=== PATIENT | female | born 1990 | race Caucasian/White ===

== ENCOUNTER 2018-07-11 17:52 | Observation (INO) | payer BC ==
[~2018-07-11] VITALS: Ht 162.6 cm; Wt 66.0 kg
[2018-07-11] MEDS ORDERED: SODIUM CHLORIDE 0.9% 1000ML 1,000 ML IV STA (18:01)
[2018-07-11 18:20] LABS: BASO % 0.2 %; BASO ABS # 0.02 K/uL (0-0.2); EOS % 0.3 %; EOS ABS # 0.03 K/uL (0-0.5); HEMATOCRIT 39.8 % (37-47); HEMOGLOBIN 13.7 g/dL (12.0-16.0); IG# 0.01 K/uL (0.00-0.02); LYMPH % 18.2 %; LYMPH ABS # 1.73 K/uL (1.2-3.4); MEAN CELL VOLUME 90.5 fL (80-100); MEAN CORPUSCULAR HEMOGLOBIN 31.1 pg (25-34); MEAN CORPUSCULAR HGB CONC 34.4 g/dl (32-36); MEAN PLATELET VOLUME 10.4 fL (7.4-10.4); MONO % 3.7 %; MONO ABS # 0.35 K/uL (0.11-0.59); NEUT % 77.5 %; NEUT ABS # 7.35 K/uL (1.4-6.5); PLATELET COUNT 235 K/uL (130-400); RED CELL DISTRIBUTION WIDTH CV 13.1 % (11.5-14.5); RED CELL DISTRIBUTION WIDTH SD 42.8 fL (36.4-46.3); WHITE BLOOD COUNT 9.49 K/uL (4.8-10.8)
--- NOTE | 2018-07-11 18:24 | DIAGNOSTIC IMAGING REPORT ---
CHEST ONE VIEW PORTABLE CLINICAL HISTORY: Chest pain. COMPARISON STUDY: No previous studies for comparison. FINDINGS: There is no pneumothorax or pleural effusion. Lung volumes are normal. There is no consolidation. Cardiac size is normal. Mediastinal contours are normal. 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 IMPRESSION: 1. No acute cardiopulmonary findings. 2. Nonvisualization/deformity of several left upper ribs which is likely congenital or postsurgical. Electronically signed by: Vincent Collazo M.D. 07/11/2018 6:23 PM Dictated Date/Time: 07/11/2018 6:20 PM
[2018-07-11 18:41] LABS: BLOOD UREA NITROGEN 16 mg/dl (7-18); CALCIUM 9.1 mg/dl (8.5-10.1); CARBON DIOXIDE 22 mmol/L (21-32); CKMB < 1.0 ng/ml (0.5-3.6); CREATININE 0.99 mg/dl (0.60-1.20); GLUCOSE 126 mg/dl (70-99); POTASSIUM 3.7 mmol/L (3.5-5.1); SODIUM 139 mmol/L (136-145)
--- NOTE | 2018-07-11 18:50 | EMERGENCY ROOM VISIT NOTE ---
History Report prepared by Sherrell: Tonya Carranza Under the Supervision of: Dr. Stepan Vo D.O. First contact with patient: 17:45 Stated Complaint: CHEST PAIN History of Present Illness The patient is a 28 year old female who presents to the Emergency Room with complaints of sudden chest pain starting 1.5 hours ago. The patient states that 2 days ago she was driving home with her daughter in the evening and started feeling short of breath. She states that she was unsure what was going on so she kept going home. 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 She reports that at the time she didn't want a big work up so she just had a CBC and D-Dimer done. She states that they came back normal. She notes that she was concerned for a PE since she takes fertility drugs. The patient states that after a few hours the pain subsided. She reports that when she got home she took a Benadryl and Tylenol before going to bed. She states that she woke up yesterday with a rash on her back that she believes looks like shingles. She states that the rest of yesterday was fine and she woke up today feeling fine. The patient reports that [place] when she started to feel her heart rate elevate. She states that her chest started to feel tight and she stated feeling short of breath again. She states that she decided to go home, but it kept getting worse. The patient states that the chest pain is getting better, but it is still difficult to breathe. She notes that she thought it was just anxiety, but she has no reason to be anxious and no history of anxiety. She states that when it is at its worst she feels like she cannot breathe, cannot swallow, and feels like she is going to . The patient complains of not being able to think clearly. The patient denies cough, runny nose, abdominal pain, urinary symptoms, nausea, vomiting, arm pain , jaw pain, exertional chest pain, and her rash burning. She notes that her LNMP was 3 weeks ago and she is due for a test next . Patient denies diabetes, hypertension, hyperlipidemia, CAD, history of sudden at a young age, and smoking. Patient denies swelling of calves, recent trips, history of immobilization or recent surgery, prior history of DVT, hemoptysis, history of malignancy, history of smoking, or control/estrogen use. Source of History: patient Onset: 1.5 hours ago Position: chest Quality: other (tightness) Timing: other (sudden) Associated Symptoms: + SOB, + rash, No cough, No nausea, No vomiting, No abdominal pain, No urinary symptoms Note: The patient complains of heart rate elevating, difficulty breathing, and not being able to think clearly. The patient denies a runny nose, hemoptysis, arm pain, jaw pain, exertional chest pain, leg swelling, and the rash burning. Review of Systems See HPI for pertinent positives & negatives. A total of 10 systems reviewed and were otherwise negative. Past Medical & Surgical Medical Problems: (1) Chest pain (2) No Known Active Medical Problems No known medical problems. Family History Patient reports no known family medical history. Social History Marital Status: Housing Status: lives with family Occupation Status: employed Current/Historical Medications Scheduled Cholecalciferol (Vitamin D), 5,000 UNITS PO DAILY Estradiol (Estrace), 2 MG PO BID Multivit/Min/Iron/Fol Ac/Pren ( Vitamin), 1 TAB PO DAILY Progesterone Micronized (Prometrium), 200 MG PO BID Scheduled PRN Acetaminophen (Tylenol), 1,000 MG PO Q6 PRN for Pain or Fever Allergies Coded Allergies: Cephalosporins (Verified Allergy, Mild, RASH, 07/11/18) Penicillins (Verified Allergy, Mild, rash, 07/11/18) Physical Exam Vital Signs Date Time Temp Pulse Resp B/P (MAP) Pulse Ox O2 Delivery O2 Flow Rate FiO2 07/11/18 21:36 99 14 07/11/18 21:31 114/80 07/11/18 21:06 90 16 07/11/18 21:05 92 16 124/91 07/11/18 21:01 124/81 07/11/18 21:00 130/77 07/11/18 20:06 116 16 99 07/11/18 20:01 151/95 07/11/18 20:00 114 20 100 Room Air 07/11/18 19:31 128/82 07/11/18 19:30 111 26 100 Room Air 07/11/18 19:18 138/86 07/11/18 19:01 140/89 07/11/18 19:00 107 18 140/89 100 Room Air 07/11/18 19:00 109 23 100 07/11/18 18:32 91 13 123/86 99 Room Air 07/11/18 18:03 88 07/11/18 18:00 36.8 93 18 137/87 97 Room Air 07/11/18 18:00 98 Room Air Physical Exam GENERAL: Sitting up in bed, alert, well appearing, well nourished, no distress, non-toxic EYE EXAM: normal conjunctiva. OROPHARYNX: no exudate, no erythema, lips, buccal mucosa, and tongue normal and mucous membranes are moist NECK: supple, no nuchal rigidity, no adenopathy, non-tender LUNGS: Clear to auscultation. Normal chest wall mechanics HEART: no murmurs, S1 normal and S2 normal ABDOMEN: abdomen soft, non-tender, normo-active bowel sounds, no masses, no rebound or guarding. BACK: Back is symmetrical on inspection and there is no deformity, no midline tenderness, no CVA tenderness. SKIN: Right upper mid thoracic has 2 slightly raised erythematous lesions covered by a band aid. UPPER EXTREMITIES: upper extremities are grossly normal. Radial pulses equal bilaterally. LOWER EXTREMITIES: No pitting edema. Calves are equal bilaterally. NEURO EXAM: Normal sensorium, cranial nerves II-XII grossly intact, normal speech, no gross weakness of arms, no gross weakness of legs. Medical Decision & Procedures ER Provider Diagnostic Interpretation: Radiology results as stated below per my review and the radiologist's interpretation: CHEST ONE VIEW PORTABLE CLINICAL HISTORY: Chest pain. COMPARISON STUDY: No previous studies for comparison. FINDINGS: There is no pneumothorax or pleural effusion. Lung volumes are normal. There is no consolidation. Cardiac size is normal. Mediastinal contours are normal. 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 IMPRESSION: 1. No acute cardiopulmonary findings. 2. Nonvisualization/deformity of several left upper ribs which is likely congenital or postsurgical. Electronically signed by: Vincent Collazo M.D. 07/11/2018 6:23 PM Dictated Date/Time: 07/11/2018 6:[address] ANGIOGRAPHY OF THE CHEST, PULMONARY EMBOLUS PROTOCOL CLINICAL HISTORY: Chest pain and shortness of breath. COMPARISON STUDY: Chest radiograph performed earlier today. TECHNIQUE: The patient's abdomen and pelvis were double shielded as patient is undergoing fertility treatments. Following IV administration of 71 mL of Optiray-320, helical axial images of the chest were obtained utilizing the pulmonary embolus protocol. Maximal intensity projections and sagittal and coronal reformats were viewed on an independent 3D workstation. IV contrast was administered without complication. A dose lowering technique was utilized adhering to the principles of ALARA. CT DOSE: 183.76 mGy.cm FINDINGS: No pulmonary emboli are identified although exam is mildly compromised by respiratory motion artifact. There is no evidence for thoracic aortic dissection. The size of the heart is normal. There is no pericardial effusion. No enlarged axillary, mediastinal or hilar lymph nodes are present. The central airways are patent. No consolidation is present. No pneumothorax or pleural effusion is noted. 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 Visualized portions of the upper abdomen is unremarkable. IMPRESSION: 1. No pulmonary emboli identified although segmental and subsegmental pulmonary arteries suboptimally assessed due to respiratory motion artifact. 2. No acute intrathoracic findings. Electronically signed by: Vincent Collazo M.D. 07/11/2018 9:06 PM Dictated Date/Time: 07/11/2018 9:00 PM Laboratory Results 07/11/18 17:55 Red Blood Count 4.40, Mean Corpuscular Volume 90.5, Mean Corpuscular Hemoglobin 31.1, Mean Corpuscular Hemoglobin Concent 34.4, Mean Platelet Volume 10.4, Neutrophils (%) (Auto) 77.5, Lymphocytes (%) (Auto) 18.2, Monocytes (%) (Auto) 3.7, Eosinophils (%) (Auto) 0.3, Basophils (%) (Auto) 0.2, Neutrophils # (Auto) 7.35, Lymphocytes # (Auto) 1.73, Monocytes # (Auto) 0.35, Eosinophils # (Auto) 0.03, Basophils # (Auto) 0.02 07/11/18 17:55 Test 07/11/18 17:55 07/11/18 20:35 White Blood Count 9.49 K/uL (4.8-10.8) Red Blood Count 4.40 M/uL (4.2-5.4) Hemoglobin 13.7 g/dL (12.0-16.0) Hematocrit 39.8 % (37-47) Mean Corpuscular Volume 90.5 fL (80-100) Mean Corpuscular Hemoglobin 31.1 pg (25-34) Mean Corpuscular Hemoglobin Concent 34.4 g/dl (32-36) Platelet Count 235 K/uL (130-400) Mean Platelet Volume 10.4 fL (7.4-10.4) Neutrophils (%) (Auto) 77.5 % Lymphocytes (%) (Auto) 18.2 % Monocytes (%) (Auto) 3.7 % Eosinophils (%) (Auto) 0.3 % Basophils (%) (Auto) 0.2 % Neutrophils # (Auto) 7.35 K/uL (1.4-6.5) Lymphocytes # (Auto) 1.73 K/uL (1.2-3.4) Monocytes # (Auto) 0.35 K/uL (0.11-0.59) Eosinophils # (Auto) 0.03 K/uL (0-0.5) Basophils # (Auto) 0.02 K/uL (0-0.2) RDW Standard Deviation 42.8 fL (36.4-46.3) RDW Coefficient of Variation 13.1 % (11.5-14.5) Immature Granulocyte % (Auto) 0.1 % Immature Granulocyte # (Auto) 0.01 K/uL (0.00-0.02) D-Dimer 330 ug/L FEU (0-500) Anion Gap 9.0 mmol/L (3-11) Est Creatinine Clear Calc Drug Dose 78.1 ml/min Estimated GFR () 88.6 Estimated GFR (Non- 76.5 BUN/Creatinine Ratio 16.1 (10-20) Calcium Level 9.1 mg/dl (8.5-10.1) Total Creatine Kinase 66 U/L (26-192) Creatine Kinase MB < 1.0 ng/ml (0.5-3.6) Creatine Kinase MB Ratio (0-3.0) Magnesium Level 1.9 mg/dl (1.8-2.4) Total Bilirubin 0.3 mg/dl (0.2-1) Direct Bilirubin 0.1 mg/dl (0-0.2) Aspartate Amino Transf (AST/SGOT) 11 U/L (15-37) Alanine Aminotransferase (ALT/SGPT) 17 U/L (12-78) Alkaline Phosphatase 52 U/L (45-117) Troponin I < 0.015 ng/ml (0-0.045) Total Protein 7.2 gm/dl (6.4-8.2) Albumin 3.9 gm/dl (3.4-5.0) Lipase 146 U/L (73-393) Thyroid Stimulating Hormone (TSH) 2.560 uIu/ml (0.300-4.500) Laboratory results per my review. Medications Administered Medications (Trade) Dose Ordered Sig/Priscila Route Start Time Stop Time Status Last Admin Dose Admin Sodium Chloride 1,000 ml @ 999 mls/hr Q1H1M STAT IV 07/11/18 18:01 07/11/18 19:01 DC 07/11/18 18:30 999 MLS/HR Miscellaneous Information (Patient'S Allergy Info Needs Entered) 1 ea NOW STAT N/A 07/11/18 20:52 07/11/18 20:53 DC 07/11/18 21:02 1 EA ECG Per My Interpretation Indication: chest pain Rate (beats per minute): 90 Rhythm: sinus rhythm Findings: T-wave inversion (Septal), other (normal axis, no PVCs) ED Course ED COURSE: Vital signs were reviewed and showed that they were normal. The patients medical record was reviewed The above diagnostic studies were performed and reviewed. ED treatments and interventions as stated above. 1750: The patient was evaluated in room B6. A complete history and physical examination was performed. 1800: Ordered NSS 1000 ml @ 999 mls/hr IV. 1848: I reevaluated the patient and she still has some chest pain. 1857: I tried at this time to obtain records from the [facility], but they are closed. 1911: I reviewed the patient's case with Dr. Yi- Cardiology. He agrees that it is unlikely cardiac, but agrees that observation is reasonable with current findings. 1917: I reevaluated the patient and she feels like her heart is racing. She feels like she is having a reoccurrence of her chest pain. Her heart rate is in the 112s. I recommended observation and the patient notes that she will thinks about it. 1999: I reevaluated the patient and she discussed her case with her attending. She would like a CT-PE and would prefer to go home at this time, but will consider it. 2125: Upon reevaluation, the patient is resting comfortably. I discussed my findings with the patient and she understands and agrees with the treatment plan. Based on the patients age, coexisting illnesses, exam and lab findings the decision to treat as an inpatient was made. The patient remained stable while under my care. The patient will be evaluated for further management. 2133: I reviewed the patient's case with Dr. Jak Celestin. He will evaluate the patient for further management. Medical Decision Differential diagnoses includes but is not limited to acute coronary syndrome, myocardial infarction, pericarditis, pulmonary embolus, aortic dissection, pneumonia, pneumothorax, musculoskeletal, shingles, esophageal. Patient is a 28-year-old female who presents the ER with intermittent precordial chest pain and shortness of breath which is been present for the past 3 days off and on. She was seen in outside hospital had a CBC and d-dimer which was negative along with an unremarkable EKG. Patient notes her symptoms get worse tonight. Labs including CBC, BMP and troponins 2 were negative along with a TSH and negative d-dimer. 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 She did request a CT PE which was performed and was negative after multiple discussions. I did discuss case with cardiology. With the flipped T waves although we favor this very unlikely to be cardiac with her low risk history patient was agreeable to staying for an echo in the morning. Patient has no other complaints at this time. She notes that her pain has completely resolved. Medication Reconcilliation Current Medication List: was personally reviewed by me Blood Pressure Screening Patient's blood pressure: Normal blood pressure Blood pressure disposition: Did not require urgent referral Consults Time Called: 1907 Consulting Physician: Dr. Yi- Cardiology Returned Call: 1911 I reviewed the patient's case with Dr. Rosenthal Cardiology. He agrees that it is unlikely cardiac, but agrees that observation is reasonable with current findings Additional Consults: Time Called: 2129 Consulted Physician: Dr. Jak Celestin Returned Call: 2133 Additional Comments: I reviewed the patient's case with Dr. Jak Celestin. He will evaluate the patient for further management. Impression Primary Impression: Precordial chest pain Additional Impression: SOB (shortness of breath) Scribe Attestation The scribe's documentation has been prepared under my direction and personally reviewed by me in its entirety. I confirm that the note above accurately reflects all work, treatment, procedures, and medical decision making performed by me. Departure Information Dispostion Being Evaluated By Hospitalist Problem Qualifiers
[2018-07-11] MEDS ORDERED: OPTIRAY 320 IV PRN (20:30)
[2018-07-11] MEDS ORDERED: PATIENT'S ALLERGY INFO NEEDS ENTERED STA (20:52)
--- NOTE | 2018-07-11 21:07 | DIAGNOSTIC IMAGING REPORT ---
CT ANGIOGRAPHY OF THE CHEST, PULMONARY EMBOLUS PROTOCOL CLINICAL HISTORY: Chest pain and shortness of breath. COMPARISON STUDY: Chest radiograph performed earlier today. TECHNIQUE: The patient's abdomen and pelvis were double shielded as patient is undergoing fertility treatments. Following IV administration of 71 mL of Optiray-320, helical axial images of the chest were obtained utilizing the pulmonary embolus protocol. Maximal intensity projections and sagittal and coronal reformats were viewed on an independent 3D workstation. IV contrast was administered without complication. A dose lowering technique was utilized adhering to the principles of ALARA. CT DOSE: 183.76 mGy.cm FINDINGS: No pulmonary emboli are identified although exam is mildly compromised by respiratory motion artifact. There is no evidence for thoracic aortic dissection. The size of the heart is normal. There is no pericardial effusion. No enlarged axillary, mediastinal or hilar lymph nodes are present. The central airways are patent. No consolidation is present. No pneumothorax or pleural effusion is noted. 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 Visualized portions of the upper abdomen is unremarkable. IMPRESSION: 1. No pulmonary emboli identified although segmental and subsegmental pulmonary arteries suboptimally assessed due to respiratory motion artifact. 2. No acute intrathoracic findings. Electronically signed by: Vincent Collazo M.D. 07/11/2018 9:06 PM Dictated Date/Time: 07/11/2018 9:00 PM
[2018-07-11] MEDS ORDERED: IV FLUIDS COMPLETED PRN (22:00)
[2018-07-11] MEDS ORDERED: CHOL1TAB42 PO (22:09)
[2018-07-11] MEDS ORDERED: PROG200C8 PO (22:09)
[2018-07-11] MEDS ORDERED: ESTR2 PO (22:09)
[2018-07-11] MEDS ORDERED: ACET-1256 PO (22:09)
[2018-07-11] MEDS ORDERED: PRENTAB26 PO (22:09)
[2018-07-11 22:14] LABS: ALBUMIN 3.9 gm/dl (3.4-5.0); TOTAL PROTEIN 7.2 gm/dl (6.4-8.2)
[2018-07-11] MEDS ORDERED: NITROGLYCERIN 0.4 MG SL PER TAB CHARGE SL STA (22:18)
[2018-07-11] MEDS ORDERED: NITROGLYCERIN 0.4 MG SL PER TAB CHARGE ONE (22:22)
[2018-07-11] MEDS ORDERED: LACTATED RINGER'S 1000ML 1,000 ML IV SCH ×2 (22:30→23:45)
[2018-07-11] MEDS ORDERED: TRAMADOL HCL 50 MG TAB PO PRN (22:45)
[2018-07-11] MEDS ORDERED: MoRPHine SULFATE 2 MG/ML CARP IV PRN ×2 (22:45→23:00)
[2018-07-11] MEDS ORDERED: PROCHLORPERAZINE INJ 5 MG in SYRINGE 4 ML IV PRN (22:45)
[2018-07-11] MEDS ORDERED: LORAZEPAM 2 MG/ML 1 ML VIAL IV PRN (22:45)
[2018-07-11] MEDS ORDERED: KETOROLAC TROMETHAMINE 30 MG/ML VIAL IV ONE (22:49)
[2018-07-11] MEDS ORDERED: IBUPROFEN 200 MG TAB PO PRN (23:00)
[2018-07-11] MEDS ORDERED: KETOROLAC TROMETHAMINE 15 MG/ML VIAL IV. PRN (23:00)
[2018-07-11 23:30] VITALS: BP 117/74; PULSE 80; TEMP 37.4; O2SAT 98; Ht 162.6 cm; Wt 66.0 kg
[2018-07-11] MEDS: ACETAMINOPHEN 325 MG TAB PO PRN (23:56)
[2018-07-12] MEDS ORDERED: LORAZEPAM INJ 0.25 MG in SYRINGE 0.125 ML IV PRN (00:15)
--- NOTE | 2018-07-12 02:43 | HISTORY & PHYSICAL EXAMINATION ---
DATE OF ADMISSION: 07/11/2018 PRIMARY CARE PHYSICIAN: Dr. Plunkett. CHIEF COMPLAINT: Chest pain. HISTORY OF PRESENT ILLNESS: History obtained from patient, mother, records. Medical history is significant for polycystic ovary syndrome. Patient recently started on oral contraceptive pills for fertility for PCOS last week. Two days ago, she was driving home when she started having achy substernal discomfort, feeling short of breath. No trauma/no unusual exertion, no cough symptoms, nonpleuritic, not like reflux. 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 At home, persistent discomfort. She woke up yesterday morning with a rash on her right posterior shoulder, somewhat painful. Patient brought to the ER by mother. No relief with nitroglycerin. MEDICAL HISTORY: As above. SURGERIES: Gynecologic procedures. HOME MEDICATIONS: Include hormonal medication. ALLERGIES: CEPHALOSPORIN, PENICILLIN. FAMILY HISTORY: There is a family history of diabetes, hyperlipidemia, kidney cancer. PERSONAL AND SOCIAL HISTORY: Nonsmoker, no chronic intake of alcoholic beverage. 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 REVIEW OF SYSTEMS: As per HPI, all 10 systems reviewed, all other ROS negative. PHYSICAL EXAMINATION: VITAL SIGNS: Blood pressure was noted to be 151/95 later 137/87, pulse rate 93 , 107, later 92, RR 16, temperature 36.8, sats 98 on room air. GENERAL: Noted to be slightly anxious, in no respiratory distress. SKIN: tender plaque-like lesions on the right shoulder blade. No scaling HEENT: [place] palpebral conjunctivae. No ptosis. Dry mucosa. NECK: Supple, nontender. CHEST: Clear to auscultation, no tenderness. HEART: Regular rate and rhythm, no murmur. ABDOMEN: Soft, nontender. EXTREMITIES: No edema, no tenderness, no gross deformities. NEUROLOGIC: Coherent. No gross focality. LABORATORY DATA: D-dimer was normal. Hemoglobin was noted to be 13.7, hematocrit 39.8, white blood cells 9.49, platelets 235. Sodium 139, potassium 4, chloride 100, CO2 of 22, glucose was noted to be 126. CTA, no acute pathology. EKG as per my interpretation, rate 90, NSR, incomplete right bundle branch block. Nonspecific T-wave abnormality ASSESSMENT: 1. Atypical chest pain multifactorial : Anxiety from possible adverse reaction to recent hormonal therapy initiated for fertility treatment for PCOS HSV reactivation 2. Hyperglycemia ro DM PLAN: Observation PCU Analgesia, anxiolytic as needed Valtrex course Patient agreeable to holding OCP for now. 2D echo RE cp Check hemoglobin A1c. Home in AM if workup unremarkable and patient comfortable. Deep venous thrombosis prophylaxis. SCDs Full code. MTDD
[2018-07-12 04:50] VITALS: BP 113/67; PULSE 68; TEMP 36.9; O2SAT 100
[2018-07-12 08:59] LABS: HEMOGLOBIN A1C 5.1 % (4.5-5.6)
[2018-07-12] MEDS ORDERED: PRENATAL VITAMIN TAB PO SCH (09:00)
[2018-07-12 09:01] VITALS: BP 104/67; PULSE 90; TEMP 37.1; O2SAT 97
[2018-07-12] MEDS: ACETAMINOPHEN 325 MG TAB PO PRN (10:45)
[2018-07-12 11:21] VITALS: BP 111/69; PULSE 80; TEMP 36.9; O2SAT 97
--- NOTE | 2018-07-12 11:36 | ECHOCARDIOGRAM REPORT ---
*NOTICE TO RECEIVING LIBERTARIAN AGENCY This information is strictly Confidential and protected under [place] law. [place] law prohibits you from making any further disclosure of this information unless further disclosure is expressly permitted by the written consent of the person to whom it pertains or is authorized by law. A general authorization for the release of medical or other information is not sufficient for this purpose. Hospital accepts no responsibility if the information is made available to any other person, INCLUDING THE PATIENT. Interpretation Summary * Name: AIDEE YO Study Date: 07/12/2018 07:07 AM BP: 113/67 mmHg * Patient Location: [facility]\S\N279\S\1 HR: 68 * : 1990 (M/d/yyyy) Gender: Female Height: 64 in * Age: 28 yrs Ethnicity: CA Weight: 147 lb * Ordering Physician: Sarthak Islas * Referring Physician: Self, Referred * Performed By: Cedric Gambino RCS * * Reason For Study: CHEST PAIN * BSA: 1.7 m2 * -- Conclusions -- * Normal LV chamber size and wall thickness. * Normal LV systolic function, EF 60-65%. * No segmental left ventricular wall motion abnormalities are noted. * Prominant septal wall papillary muscle, likely normal variant. Could consider outpatient cardiac MRI to further evaluate. * Normal diastolic function. * No significant valvular pathology. Procedure Details * A complete two-dimensional transthoracic echocardiogram was performed (2D, M-mode, Doppler and color flow Doppler). Left Ventricle * The left ventricle is normal in size. * Prominant septal wall papillary muscle, likely normal variant. Could consider outpatient cardiac MRI to further evaluate. * There is normal left ventricular wall thickness. * Left ventricular systolic function is normal. * No segmental left ventricular wall motion abnormalities are noted. * Ejection Fraction = 60-65%. * The left ventricular wall motion is normal. Right Ventricle * The right ventricular cavity size is normal (basal dimension <4.2 cm in right ventricular apical 4-chamber view). * The right ventricular systolic function is normal as assessed by tricuspid annular plane systolic excursion (TAPSE) (normal >1.5 cm). Atria * The left atrial size is normal. * Right atrial size is normal. * No ASD detected; PFO is not assessed. Mitral Valve * The mitral valve is normal in structure and function. Tricuspid Valve * The tricuspid valve is normal in structure and function. Aortic Valve * The aortic valve is not well visualized. * No hemodynamically significant valvular aortic stenosis. * There is no significant aortic regurgitation. Pulmonic Valve * The pulmonary valve is not well seen, but the Doppler examination is normal without significant regurgitation or stenosis. Great Vessels * The aortic root and proximal ascending aorta are normal sized. Pericardium/Pleural * There is no pericardial effusion. Left Ventricular Diastolic Function * Pulse wave TDI of the anterior and posterior mitral annulas demonstrates normal LV relaxation MMode 2D Measurements and Calculations IVSd 0.94 cm IVSs 1.2 cm LVIDd 4.3 cm LVIDs 2.8 cm LVPWd 0.87 cm LVPWs 1.2 cm IVS/LVPW 1.1 FS 33.7 % EDV(Teich) 82.6 ml ESV(Teich) 30.7 ml EF(Teich) 62.8 % EDV(cubed) 78.9 ml ESV(cubed) 23.0 ml EF(cubed) 70.8 % % IVS thick 29.0 % % LVPW thick 36.1 % LV mass(C)d 123.6 grams LV mass(C)dI 72.0 grams/m\S\2 LV mass(C)s 101.1 grams LV mass(C)sI 58.9 grams/m\S\2 SV(Teich) 51.9 ml SI(Teich) 30.2 ml/m\S\2 SV(cubed) 55.9 ml SI(cubed) 32.6 ml/m\S\2 Ao root diam 3.1 cm Ao root area 7.6 cm\S\2 ACS 1.5 cm LA dimension 3.3 cm asc Aorta Diam 2.4 cm LA/Ao 1.1 EDV(MOD-sp4) 93.0 ml ESV(MOD-sp4) 29.0 ml EF(MOD-sp4) 68.8 % EDV(MOD-sp2) 114.0 ml ESV(MOD-sp2) 40.0 ml EF(MOD-sp2) 64.9 % SV(MOD-sp4) 64.0 ml SI(MOD-sp4) 37.3 ml/m\S\2 SV(MOD-sp2) 74.0 ml SI(MOD-sp2) 43.1 ml/m\S\2 Doppler Measurements and Calculations MV E max ricky 78.0 cm/sec MV A max ricky 49.9 cm/sec MV E/A 1.6 MV P1/2t max ricky 106.1 cm/sec MV P1/2t 83.4 msec MVA(P1/2t) 2.6 cm\S\2 MV dec slope 372.7 cm/sec\S\2 MV dec time 0.22 sec Ao V2 max 119.1 cm/sec Ao max PG 5.7 mmHg Ao max PG (full) 2.0 mmHg LV V1 max PG 3.6 mmHg LV V1 max 95.4 cm/sec PA V2 max 79.8 cm/sec PA max PG 2.6 mmHg PI max ricky 152.7 cm/sec PI max PG 9.3 mmHg PI dec slope 120.9 cm/sec\S\2 PI P1/2t 369.8 msec TR max ricky 232.8 cm/sec
--- NOTE | 2018-07-12 12:40 | Discharge Instructions ---
Discharge Instructions Date of Service Jul 12, 2018. Admission Reason for Admission: Chest Pain Discharge Discharge Diagnosis / Problem: CHEST PAIN /NO EVIDENCE OF ACUTE CORONARY EVENT OR ANGINA /SHINGLES Discharge Goals Goal(s): Decrease discomfort, Improve function, Increase independence, Improve disease control, Diagnostic testing Activity Recommendations Activity Limitations: resume your previous activity . Instructions / Follow-Up Instructions / Follow-Up HOSPITAL FOLLOW UP WITH FAMILY PHYSICIAN IN A WEEK , PLEASE CALL TO SCHEDULE AN APPOINTMENT Current Hospital Diet Patient's current hospital diet: Regular Diet Discharge Diet Recommended Diet: Regular Diet Pending Studies Studies pending at discharge: no Laboratory Results Hemoglobin A1c Test 07/12/18 06:27 Range/Units Estimated Average Glucose 100 mg/dl Hemoglobin A1c 5.1 4.5-5.6 % Medical Emergencies . Who to Call and When: Medical Emergencies: If at any time you feel your situation is an emergency, please call 911 immediately. . Non-Emergent Contact Non-Emergency issues call your: Primary Care Provider . . "Provider Documentation" section prepared by Daniela Johnston. .
[2018-07-12 13:44] VITALS: BP 111/69; PULSE 80; TEMP 36.9; O2SAT 97
[2018-07-12] MEDS ORDERED: VALA1TAB31 PO (14:14)
--- NOTE | 2018-07-12 14:21 | Discharge Summary ---
Discharge Summary Date of Service Jul 12, 2018. Discharge Summary Admission Date: Jul 11, 2018 at 21:49 Discharge Date: Jul 12, 2018 Discharge Disposition: Home Principal Diagnosis: CHEST PAIN /NO EVIDENCE OF ACUTE CORONARY EVENT OR ANGINA /SHINGLES Procedures: ECHO : * Normal LV chamber size and wall thickness. * Normal LV systolic function, EF 60-65%. * No segmental left ventricular wall motion abnormalities are noted. * Prominant septal wall papillary muscle, likely normal variant. Could consider outpatient cardiac MRI to further evaluate. * Normal diastolic function. * No significant valvular pathology. CT CHEST WITH CONTRAST : 1. No pulmonary emboli identified all the segmental and subsegmental pulmonary arteries are suboptimally assessed due to respiratory motion artifact 2. No acute intrathoracic Medication Reconciliation New Medications: Valacyclovir Hcl (Valtrex) 1 Gm Tab 1 TAB PO TID for 7 Days, #21 TAB Continued Medications: Acetaminophen (Tylenol) 500 Mg Tab 1000 MG PO Q6 PRN for Pain or Fever, TAB Cholecalciferol (Vitamin D) 5,000 Unit Tab 5000 UNITS PO DAILY Estradiol (Estrace) 2 Mg Tab 2 MG PO BID for 90 Days, #180 TAB 3 Refills Multivit/Min/Iron/Fol Ac/Pren ( Vitamin) Tab 1 TAB PO DAILY, TAB Progesterone Micronized (Prometrium) 200 Mg Cap 200 MG PO BID, CAP Admission Information HPI (per Admitting provider): DATE OF ADMISSION: 07/11/2018 PRIMARY CARE PHYSICIAN: Dr. Plunkett. CHIEF COMPLAINT: Chest pain. HISTORY OF PRESENT ILLNESS: History obtained from patient, mother, records. Medical history is significant for polycystic ovary syndrome. Patient recently started on oral contraceptive pills for fertility for PCOS last week. Two days ago, she was driving home when she started having achy substernal discomfort, feeling short of breath. No trauma/no unusual exertion, no cough symptoms, nonpleuritic, not like reflux. 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 At home, persistent discomfort. She woke up yesterday morning with a rash on her right posterior shoulder, somewhat painful. Patient brought to the ER by mother. No relief with nitroglycerin. MEDICAL HISTORY: As above. SURGERIES: Gynecologic procedures. HOME MEDICATIONS: Include hormonal medication. ALLERGIES: CEPHALOSPORIN, PENICILLIN. FAMILY HISTORY: There is a family history of diabetes, hyperlipidemia, kidney cancer. PERSONAL AND SOCIAL HISTORY: Nonsmoker, no chronic intake of alcoholic beverage. 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 REVIEW OF SYSTEMS: As per HPI, all 10 systems reviewed, all other ROS negative. Physical Exam (per Admitting): PHYSICAL EXAMINATION: VITAL SIGNS: Blood pressure was noted to be 151/95 later 137/87, pulse rate 93 , 107, later 92, RR 16, temperature 36.8, sats 98 on room air. GENERAL: Noted to be slightly anxious, in no respiratory distress. SKIN: tender plaque-like lesions on the right shoulder blade. No scaling HEENT: [place] palpebral conjunctivae. No ptosis. Dry mucosa. NECK: Supple, nontender. CHEST: Clear to auscultation, no tenderness. HEART: Regular rate and rhythm, no murmur. ABDOMEN: Soft, nontender. EXTREMITIES: No edema, no tenderness, no gross deformities. NEUROLOGIC: Coherent. No gross focality. Hospital Course no complain of chest pain or SOB Has burning sensation and vesicular erythematous rash on right upper back and right anterior chest wall PHYSICAL EXAM : General: Very pleasant young female no sign of distress HEENT: Sclera nonicteric, pupils bilateral equal reactive light extraocular muscle intact Lungs: Clear to auscultate, no wheezes rales Heart: Regular S1 and S2 no murmur Abdomen: Soft nontender, no organomegaly, bowel sounds active Extremity: No lower extremity edema, deformity Neuro: Alert awake oriented 3, no focal neurological Skin:Rash on right upper back with extending to right anterior chest wall, erythematous vesicular Last 8 Hrs Date Time Temp Pulse Resp B/P (MAP) Pulse Ox O2 Delivery O2 Flow Rate FiO2 07/12/18 13:44 36.9 80 18 97 Room Air 07/12/18 11:21 36.9 80 18 111/69 (83) 97 Room Air 07/12/18 09:01 37.1 90 16 104/67 (79) 97 Room Air 07/12/18 08:00 Room Air ASSESSMENT AND PLAN : CHEST PAIN /ATYPICAL FOR ANGINA : No evidence of cardiac ischemia, echo shows no wall motion abnormality, serial cardiac enzymes negative, CT chest negative for PE Symptoms more suggestive of panic attack,-does not have any dyspnea on exertion , no orthopnea, but all of a sudden feels she cannot breathe/hyperventilation, no hypoxia noted Patient is counseled for symptomatic management, breathing technique, stress control Family history significant for grandmother had [place] at age 62 Patient will be followed up by her family physician If symptoms continue to persist, outpatient cardiac stress test could be beneficial SHINGLES : Started Prodrome symptoms burning sensation/itching 2 days ago Broke into vesicular rash along the T4 dermatome distribution last night No fever or chills Had chickenpox in childhood Given the shingles rash on the right side of the chest wall, does not correlate with central chest heaviness left-sided arm numbness Patient is started on Valtrex complete 7 days course CODE STATUS : Full code DVT PROPHYLAXIS : low risk SCD and Teds ambulate DISPOSITION : stable to be discharged home today Discharge Instructions Discharge Instructions Date of Service Jul 12, 2018. Admission Reason for Admission: Chest Pain Discharge Discharge Diagnosis / Problem: CHEST PAIN /NO EVIDENCE OF ACUTE CORONARY EVENT OR ANGINA /SHINGLES Discharge Goals Goal(s): Decrease discomfort, Improve function, Increase independence, Improve disease control, Diagnostic testing Activity Recommendations Activity Limitations: resume your previous activity . Instructions / Follow-Up Instructions / Follow-Up HOSPITAL FOLLOW UP WITH FAMILY PHYSICIAN IN A WEEK , PLEASE CALL TO SCHEDULE AN APPOINTMENT Current Hospital Diet Patient's current hospital diet: Regular Diet Discharge Diet Recommended Diet: Regular Diet Pending Studies Studies pending at discharge: no Laboratory Results Hemoglobin A1c Test 07/12/18 06:27 Range/Units Estimated Average Glucose 100 mg/dl Hemoglobin A1c 5.1 4.5-5.6 % Medical Emergencies . Who to Call and When: Medical Emergencies: If at any time you feel your situation is an emergency, please call 911 immediately. . Non-Emergent Contact Non-Emergency issues call your: Primary Care Provider . . "Provider Documentation" section prepared by Daniela Johnston. .
== END 2018-07-12 14:48 | disposition home or self-care (01) ==
LOC: EDBD 17:52 → C.EDB 17:53 → C.MED 21:49 → ENRESERV 22:05 → CANRESERV 22:05 → EDBEDREQ 22:21 → ENRESERV 22:57
PROVIDERS: ADMIT Hospitalist; ATTEND Hospitalist
DX: R07.2 Precordial pain (principal); R73.9 Hyperglycemia, unspecified; Z88.0 Allergy status to penicillin; Z88.1 Allergy status to other antibiotic agents